=== PATIENT | male | born 1955 | race Caucasian/White ===

== ENCOUNTER → 2017-07-02 | Outpatient (CLI) | payer BC, OTHER ==
[~2017-07-02] MED LIST: /TAMS4CA OR; ANTIBIOTIC PO; CARD2TAB OR; COLA100C2 OR; LEVA500T OR
--- NOTE | 2017-07-02 12:28 | REP ---
ABDOMINAL AORTIC SONOGRAPHY: HISTORY: 4.5 cm abdominal aortic aneurysm on November 28, 2016. The patient reports history of thoracic aortic aneurysm. No recent comparison CT study available. There is a comparison CT study of the chest from October 05, 2011 and a comparison abdominal CT study from April 06, 2011. The [address] showed no evidence of thoracic aortic aneurysm. The [address] did not show evidence of an abdominal aortic aneurysm. TODAY'S SONOGRAPHIC FINDINGS: The abdominal aorta measures 3.2 cm AP x 2.5 cm transverse at the diaphragmatic hiatus. Abdominal gas precludes visualization of the aorta at the level of the main renal arteries. At mid aortic level, the aorta is tapered to a 1.8 x 1.8 cm transverse dimension. The distal aorta measures 2.0 x 2.4 cm in AP x transverse dimension respectively at the level just above the aortic bifurcation. The right and left common iliac arteries are normal measuring 1.3 cm in AP dimension on each side. No aneurysm is seen. IMPRESSION: No sonographic evidence of abdominal aortic aneurysm. No recent prior studies available. Signed by David Awan MD 07/02/2017 02:25 P
== END ==
LOC: M RAD 08:23
PROVIDERS: ATTEND Physician Assistant
DX: I71.9 Aortic aneurysm of unspecified site, without rupture (principal)

== ENCOUNTER → 2018-03-19 | Outpatient (CLI) | payer BC, OTHER | LOC: M WUC 10:06 | DX: M25.542 Pain in joints of left hand (principal) | CPT/HCPCS: 73130 ==

== ENCOUNTER 2018-04-02 07:47 | Day surgery (SDC) | payer BC, OTHER ==
[2018-04-02] MEDS: NS 1,000 ML IV (08:00)
[2018-04-02] MEDS ORDERED: LIDOCAINE 2% INJ 100 MG/5 ML SDV (FOR ANES.) As Ordered (08:54)
[2018-04-02] MEDS ORDERED: PROPOFOL 200 MG/20 ML VIAL As Ordered ×2 (08:54)
== END 2018-04-02 09:38 | disposition home or self-care (01) ==
LOC: M OPP 07:47
DX: Z12.11 Encounter for screening for malignant neoplasm of colon (principal); K64.0 First degree hemorrhoids; K57.30 Diverticulosis of large intestine without perforation or abscess without bleeding; I71.4 Abdominal aortic aneurysm, without rupture; I10 Essential (primary) hypertension; Z85.46 Personal history of malignant neoplasm of prostate; Z92.3 Personal history of irradiation; R06.83 Snoring; G47.30 Sleep apnea, unspecified; N40.1 Benign prostatic hyperplasia with lower urinary tract symptoms; Z79.899 Other long term (current) drug therapy
CPT/HCPCS: G0121

== ENCOUNTER → 2018-05-21 | Outpatient (CLI) | payer OTHER, BC ==
[2018-05-21 12:40] LABS: HEMATOCRIT 44.9 % (42.0-52.0); HEMOGLOBIN 14.5 g/dl (13.5-17.5); MEAN CORPUSCULAR HEMOGLOBIN 26.9 pg (27.0-33.0); MEAN CORPUSCULAR HGB CONC 32.3 g/dl (32.0-36.5); MEAN CORPUSCULAR VOLUME 83.3 fl (80.0-96.0); PLATELET COUNT, AUTOMATED 245 10^3/uL (150-450); RED BLOOD COUNT 5.39 10^6/uL (4.30-6.10); RED CELL DISTRIBUTION WIDTH 13.3 % (11.5-14.5)
[2018-05-21 13:00] LABS: APPEARANCE, URINE CLEAR (CLEAR); BACTERIA, URINE AUTO NEGATIVE (NEGATIVE); BILIRUBIN, URINE AUTO NEGATIVE (NEGATIVE); BLOOD, URINE BLOOD NEGATIVE (NEGATIVE); COLOR, URINE STRAW (YELLOW); GLUCOSE, URINE (UA) AUTO NEGATIVE (NEGATIVE); KETONE, URINE AUTO NEGATIVE (NEGATIVE); LEUKOCYTE ESTERASE, URINE AUTO NEGATIVE (NEGATIVE); NITRITE, URINE AUTO NEGATIVE (NEGATIVE); PROTEIN, URINE AUTO NEGATIVE (NEGATIVE); RBC, URINE AUTO 3 /HPF (0-3); SPECIFIC GRAVITY URINE AUTO 1.006 (1.002-1.035); SQUAMOUS EPITHELIAL CELL UR AU 0 /HPF (0-6); UROBILINOGEN, URINE AUTO 0.2 mg/dL (0.0-2.0); WBC, URINE AUTO 0 /HPF (0-3)
[2018-05-21 13:09] LABS: ALBUMIN 3.6 GM/DL (3.2-5.2); ALBUMIN/GLOBULIN RATIO 1.38 (1.00-1.93); ALKALINE PHOSPHATASE 61 U/L (45-117); ALT/SGPT 17 U/L (12-78); ANION GAP 6 MEQ/L (8-16); AST/SGOT 16 U/L (7-37); BILIRUBIN,TOTAL 0.9 MG/DL (0.2-1.0); BLOOD UREA NITROGEN 19 MG/DL (7-18); CALCIUM LEVEL 8.6 MG/DL (8.8-10.2); CARBON DIOXIDE LEVEL 30 MEQ/L (21-32); CHLORIDE LEVEL 106 MEQ/L (98-107); CHOLESTEROL LEVEL 153 MG/DL (<200); CHOLESTEROL RISK RATIO 3.642 (<5); CREATININE FOR GFR 0.95 MG/DL (0.70-1.30); GLOMERULAR FILTRATION RATE > 60.0 (>49); GLUCOSE, FASTING 124 MG/DL (70-100); HDL CHOLESTEROL 42 MG/DL (>40); LDL CHOLESTEROL 90 MG/DL (<100); NON-HDL-C 111 MG/DL; POTASSIUM SERUM 4.3 MEQ/L (3.5-5.1); PROSTATIC SPECIFIC AG MONITOR 0.12 NG/ML (< 4.0); SODIUM LEVEL 142 MEQ/L (136-145); TOTAL PROTEIN 6.2 GM/DL (6.4-8.2); TRIGLYCERIDES LEVEL 105 MG/DL (<150)
== END ==
LOC: M WUC 09:54
DX: E78.2 Mixed hyperlipidemia (principal); R35.1 Nocturia; I10 Essential (primary) hypertension; G47.30 Sleep apnea, unspecified
CPT/HCPCS: 84443

== ENCOUNTER → 2019-11-13 | Outpatient (CLI) | payer OTHER, BC ==
[~2019-11-13] MED LIST changes: -/TAMS4CA OR; +FLOM0.4C39 OR; +MELO15TA28 PO; +METO1TAB87 PO
[2019-11-14 14:12] LABS: PSA TOTAL <0.1 ng/mL (0.0-4.0)
== END ==
LOC: M WUC 09:28
PROVIDERS: ATTEND Radiology Therapeutic Radiology
DX: C61 Malignant neoplasm of prostate (principal)

== ENCOUNTER → 2020-11-24 | Outpatient (CLI) | payer MEDICARE, BC, OTHER ==
--- NOTE | 2020-11-24 14:34 | REP ---
INDICATION: THORACIC ANEURYSM WITHOUT RUPTURE COMPARISON: Multiple the latest 03/11/2019 TECHNIQUE: Standard helical technique without intravenous contrast administration FINDINGS: Evaluation of the thoracic aorta is limited secondary to the lack of intravenous contrast administration and motion artifact. There is no significant change in appearance of the thoracic aorta. Best measurement, in the same plane as that used on the prior exam, the transverse diameter of the aorta is again 3.9 cm. There is no mediastinal or hilar adenopathy. There are no pleural or pericardial effusions. There is no change in the imaged upper abdomen or imaged osseous structures. Evaluation of the lung camp shows no new abnormal nodules, masses, or opacities. IMPRESSION: Exam limitations and findings as described above. There has been no significant change compared to the prior exam. <Electronically signed by Zane Diamond > 11/24/20 2022
== END ==
LOC: M RAD 14:06
PROVIDERS: ATTEND Thoracic Surgery (Cardiothoracic Vascular Surgery)
DX: I71.2 Thoracic aortic aneurysm, without rupture (principal)

== ENCOUNTER → 2021-02-07 | Outpatient (CLI) | payer MEDICARE, BC, OTHER ==
[2021-02-07 11:47] LABS: PERCENT SATURATION 42.3 % (19.7-50.0); PROSTATIC SPECIFIC AG MONITOR 0.08 NG/ML (< 4.00)
== END ==
LOC: M WUC 08:45
PROVIDERS: ATTEND Radiology Therapeutic Radiology
DX: C61 Malignant neoplasm of prostate (principal)

== ENCOUNTER → 2021-07-24 | Outpatient (CLI) | payer MEDICARE, BC, OTHER | LOC: M WUC 10:23 | PROVIDERS: ATTEND Physician Assistant | DX: M19.012 Primary osteoarthritis, left shoulder (principal) ==

== ENCOUNTER → 2022-06-12 | Outpatient (CLI) | payer MEDICARE, BC, OTHER | LOC: M PLAIMG 14:27 | PROVIDERS: ATTEND Thoracic Surgery (Cardiothoracic Vascular Surgery) | DX: R91.8 Other nonspecific abnormal finding of lung field (principal); I71.20 Thoracic aortic aneurysm, without rupture, unspecified ==

== ENCOUNTER → 2023-01-01 | Outpatient (REF) | payer MEDICARE, BC, OTHER ==
[2023-01-01 17:37] LABS: BASO % 0.5 % (0.0-1.0); EOS # 0.1 10^3/uL (0.0-0.5); EOS % 1.7 % (0.0-3.0); HEMATOCRIT 47.1 % (42.0-52.0); HEMOGLOBIN 15.3 g/dl (13.5-17.5); LYMPH # 1.2 10^3/uL (1.5-5.0); LYMPH % 20.3 % (24.0-44.0); MEAN CORPUSCULAR HGB CONC 32.5 g/dl (32.0-36.5); MEAN CORPUSCULAR VOLUME 83.1 fl (80.0-96.0); MONO # 0.4 10^3/uL (0.0-0.8); MONO % 6.1 % (2.0-8.0); NEUTROPHILS # 4.1 10^3/uL (1.5-8.5); NEUTROPHILS % 71.2 % (36.0-66.0); PLATELET COUNT, AUTOMATED 232 10^3/uL (150-450); RED BLOOD COUNT 5.67 10^6/uL (4.30-6.10); WHITE BLOOD COUNT 5.8 10^3/uL (4.0-10.0)
[2023-01-01 17:42] LABS: BLOOD UREA NITROGEN 19 MG/DL (9-23); CALCIUM LEVEL 8.9 MG/DL (8.3-10.6); CARBON DIOXIDE LEVEL 30 MMOL/L (20-31); CHLORIDE LEVEL 105 MMOL/L (98-107); GLOMERULAR FILTRATION RATE > 60.0 (>49); GLUCOSE, FASTING 154 MG/DL (74-106); POTASSIUM SERUM 3.8 MMOL/L (3.5-5.1); SODIUM LEVEL 141 MMOL/L (136-145)
[2023-01-01 17:48] LABS: APPEARANCE, URINE CLEAR (CLEAR); BACTERIA, URINE AUTO NEGATIVE (NEGATIVE); BILIRUBIN, URINE AUTO NEGATIVE (NEGATIVE); BLOOD, URINE BLOOD NEGATIVE (NEGATIVE); COLOR, URINE YELLOW (YELLOW); GLUCOSE, URINE (UA) AUTO NEGATIVE (NEGATIVE); KETONE, URINE AUTO NEGATIVE (NEGATIVE); LEUKOCYTE ESTERASE, URINE AUTO NEGATIVE (NEGATIVE); MUCUS, URINE SMALL (NEGATIVE); NITRITE, URINE AUTO NEGATIVE (NEGATIVE); PROTEIN, URINE AUTO NEGATIVE (NEGATIVE); RBC, URINE AUTO 1 /HPF (0-3); SPECIFIC GRAVITY URINE AUTO 1.015 (1.002-1.035); SQUAMOUS EPITHELIAL CELL UR AU 0 /HPF (0-6); UROBILINOGEN, URINE AUTO 0.2 mg/dL (0.0-2.0); WBC, URINE AUTO 0 /HPF (0-3)
== END ==
LOC: M LAB REF 16:35
PROVIDERS: ATTEND Urology
DX: D29.4 Benign neoplasm of scrotum (principal); Z79.899 Other long term (current) drug therapy

== ENCOUNTER → 2024-01-08 | Outpatient (CLI) | payer MEDICARE, BC | LOC: M RAD 09:34 | PROVIDERS: ATTEND Thoracic Surgery (Cardiothoracic Vascular Surgery) | DX: I71.21 Aneurysm of the ascending aorta, without rupture (principal) ==

== ENCOUNTER → 2025-03-08 | Outpatient (CLI) | payer MEDICARE, BC | LOC: M PLAIMG 14:07 | PROVIDERS: ATTEND Thoracic Surgery (Cardiothoracic Vascular Surgery) | DX: I71.21 Aneurysm of the ascending aorta, without rupture (principal) ==